=== PATIENT | female | born 1985 | race Caucasian/White ===

== ENCOUNTER 2022-06-02 09:33 | Outpatient (CLI) | payer OTHER, SELFPAY ==
--- NOTE | 2022-06-02 09:45 | CRLHL7_ITS ---
For Patients: As a result of the Cures Act, medical imaging exams and procedure reports are released immediately into your electronic medical record. You may view this report before your referring provider. If you have questions, please contact your health care provider. INDICATION: First trimester scan, establish dates. COMPARISON: None. TECHNIQUE: Real-time singh-scale imaging of the pelvis was performed. FINDINGS: Sonographic imaging demonstrates a single living intrauterine gestation. The embryo demonstrates a regular cardiac rate measuring 148 beats per minute. The embryo`s crown-rump length measurement of 1.3 cm corresponds to a gestational age of 7 weeks 4 days with a sonographic due date of 01/15/2023. There is a normal-appearing yolk sac. There are no gross abnormalities noted within the embryo at this early state of development. The gestational sac has a normal appearance. There is a superior perigestational hemorrhage measuring 1.1 x 0.4 x 1.8 cm and a left inferior subchorionic hemorrhage measuring 2.4 x 0.5 x 2.0 cm. The amount of fluid within the sac appears appropriate for gestational age. The cervix is closed. The myometrium appears normal. Left ovary not visualized. Corpus luteal cyst right ovary appear there are no suspicious fluid collections noted in the cul-de-sac. IMPRESSION: Single living intrauterine with sonographic gestational age of 7 weeks 4 days and sonographic due date 01/15/2023. Two subchorionic hemorrhages measuring 1.8 and 2.4 cm. Dictated by Angel Brito MD @ 06/02/2022 10:52:58 AM (Electronically Signed)
== END 2022-06-02 09:34 | disposition home or self-care (01) ==
LOC: US 09:34
PROVIDERS: Visit Provider Advanced Practice Midwife
DX: Z34.91 Encounter for supervision of normal pregnancy, unspecified, first trimester (principal); Z3A.01 Less than 8 weeks gestation of pregnancy
CPT/HCPCS: 76817

== ENCOUNTER 2022-06-02 09:56 | Outpatient (CLI) | payer OTHER, SELFPAY ==
[2022-06-02 15:55] LABS: Hepatitis B Surface Antigen* Negative (Negative)
[2022-06-02 16:06] LABS: HIV 1/2/P24 Combo Screen* Negative (Negative)
[2022-06-02 16:13] LABS: Hepatitis C Virus Antibody* Negative (Negative)
[2022-06-02 19:08] LABS: Chlamydia DNA Amplified* NOT DETECTED (No Detected); GC DNA Amplified* NOT DETECTED (No Detected)
[2022-06-03 17:01] LABS: Rapid Plasma Reagin (RPR) Non Reactive (Non Reactive)
[2022-06-03 17:43] LABS: Rubella Antibody IgG 42.5 IU/mL
== END 2022-06-02 09:57 | disposition home or self-care (01) ==
PROVIDERS: Visit Provider Advanced Practice Midwife
DX: Z34.91 Encounter for supervision of normal pregnancy, unspecified, first trimester (principal); Z3A.01 Less than 8 weeks gestation of pregnancy
CPT/HCPCS: 86592; 86703; 86762; 86787; 86803; 86850; 86900; 86901; 87086; 87340; 87491; 87591

== ENCOUNTER 2022-07-01 14:22 | Outpatient (CLI) | payer OTHER, SELFPAY ==
[2022-07-01 17:46] LABS: Chlamydia DNA Amplified* NOT DETECTED (No Detected); GC DNA Amplified* NOT DETECTED (No Detected)
== END 2022-07-01 14:23 | disposition home or self-care (01) ==
LOC: NFLDREF 14:26
PROVIDERS: Visit Provider Advanced Practice Midwife
DX: O26.851 Spotting complicating pregnancy, first trimester (principal); Z3A.12 12 weeks gestation of pregnancy
CPT/HCPCS: 87491; 87591

== ENCOUNTER 2022-08-11 13:24 | Outpatient (CLI) | payer OTHER, SELFPAY ==
--- NOTE | 2022-08-11 13:00 | CRLHL7_ITS ---
For Patients: As a result of the Century Cures Act, medical imaging exams and procedure reports are released immediately into your electronic medical record. You may view this report before your referring provider. If you have questions, please contact your health care provider. INDICATION: Bleeding in COMPARISON: 06/02/2022 TECHNIQUE: Real-time singh-scale imaging of the pelvis was performed. FINDINGS: Sonographic imaging demonstrates a single living intrauterine gestation. The embryo demonstrates a regular cardiac rate measuring 152 beats per minute. BPD 52nd percentile. HC 26th percentile. AC 69th percentile. FL 34th percentile. Estimated weight 219 grams, 54th percentile. Sonographic gestational age 17 weeks 6 days and sonographic due date 01/13/2023. Cervix is closed and measures 3.5 cm. position vertex. Placenta is posterior. Amniotic fluid equals 4.2 cm single deepest pocket. IMPRESSION: Sonographic gestational age 17 weeks 6 days and sonographic due date 01/13/2023. Closed cervix. Normal amniotic fluid. Dictated by Angel Brito MD @ 08/12/2022 9:59:18 AM (Electronically Signed)
== END 2022-08-11 13:25 | disposition home or self-care (01) ==
LOC: US 13:25
PROVIDERS: Visit Provider Physician Assistant
DX: O26.859 Spotting complicating pregnancy, unspecified trimester (principal); Z3A.17 17 weeks gestation of pregnancy
CPT/HCPCS: 76816

== ENCOUNTER 2022-10-07 10:19 | Outpatient (CLI) | payer OTHER, SELFPAY ==
[2022-10-07 10:32] LABS: Appearance Urine Clear (Clear); Bilirubin Urine Negative (Negative); Blood Urine Negative (Negative); Color Urine Yellow (Yellow); Glucose Urine Negative (Negative); Ketones Urine Negative (Negative); Leukocyte Esterase Urine Trace (Negative); Nitrite Urine Negative (Negative); Protein Urine Negative (Negative); Specific Gravity Urine 1.015 (1.000-1.030); Urobilinogen Urine 0.2 (0.2-1.0)
[2022-10-07 10:38] LABS: RBC Urine 0-2 (0-2); Squamous Epithelial Cell Urine Few (None-Few)
== END 2022-10-07 10:20 | disposition home or self-care (01) ==
LOC: NFLDREF 10:20
PROVIDERS: Visit Provider Registered Nurse
DX: R35.0 Frequency of micturition (principal)
CPT/HCPCS: 81003; 81015; 86592; 87086

== ENCOUNTER 2022-11-17 09:43 | Outpatient (CLI) | payer OTHER, SELFPAY ==
--- NOTE | 2022-11-17 09:45 | CRLHL7_ITS ---
For Patients: As a result of the Century Cures Act, medical imaging exams and procedure reports are released immediately into your electronic medical record. You may view this report before your referring provider. If you have questions, please contact your health care provider. INDICATION: Third trimester scan, evaluate growth. COMPARISON: 08/11/2022 TECHNIQUE: Real time singh scale imaging of the fetus was performed. FINDINGS: Sonographic imaging demonstrates a single living intrauterine gestation. Fetus demonstrates a regular cardiac rate of 159 beats per minute. Fetus has a vertex position. The placenta lies posteriorly. Amniotic fluid volume appears normal and there is a single deepest vertical pocket: 6.1 cm. The estimated weight is 1758gm which lies at the 25th %. On the prior OB ultrasound exam dated 08/11/2022 the estimated weight was at the 54th%. BPD 26th percentile. HC 12th percentile. AC 30th percentile. FL 29th percentile. The HC/AC ratio measures 1.06 range (0.96-1.16). IMPRESSION: Sonographic gestational age 31 weeks 3 days and sonographic due date 01/16/2023. Good correlation with dates. Normal interval growth. Estimated weight 25th percentile. Abdominal circumference 30th percentile. Dictated by Angel Brito MD @ 11/17/2022 12:20:14 PM (Electronically Signed)
== END 2022-11-17 09:44 | disposition home or self-care (01) ==
LOC: US 09:43
PROVIDERS: Visit Provider Obstetrics & Gynecology
DX: O09.523 Supervision of elderly multigravida, third trimester (principal); Z3A.31 31 weeks gestation of pregnancy
CPT/HCPCS: 76816

== ENCOUNTER 2022-12-09 03:13 | Outpatient (CLI) | payer OTHER, SELFPAY ==
[2022-12-09 03:40] VITALS: BP 130/61; PULSE 84; PULSE 85; O2SAT 97
[2022-12-09 03:45] VITALS: RESP 18; TEMP 37.1
[2022-12-09] MEDS: LACTATED RINGERS 1000 ML 1,000 ML 500 ML IV (04:12)
[2022-12-09 05:37] LABS: Appearance Urine Clear (Clear); Bilirubin Urine Negative (Negative); Blood Urine 3+ (Negative); Color Urine Yellow (Yellow); Glucose Urine Negative (Negative); Ketones Urine Negative (Negative); Leukocyte Esterase Urine 1+ (Negative); Nitrite Urine Negative (Negative); Protein Urine Negative (Negative); Specific Gravity Urine 1.015 (1.000-1.030); Urobilinogen Urine 0.2 (0.2-1.0)
[2022-12-09 05:56] LABS: Squamous Epithelial Cell Urine Few (None-Few); WBC Urine 0-2 (0-5)
[2022-12-09 07:58] VITALS: BP 114/56; PULSE 78
--- NOTE | 2022-12-09 11:14 | PC.OBNST ---
NST Note NST Note Start: 12/09/22 03:18 Freq: ONCE Status: Active Protocol: Document 12/09/22 10:45 [facility] (Rec: 12/09/22 11:14 [facility] [id number]) NST Note 3 Para (# of births) 1 EDC 01/13/23 Gestational Age In Weeks & Days 35 Weeks & 0 Days High Risk Factors Advanced Maternal Age Patient Presented with Complaint(s) of Contractions/cramping Reactive Yes Appropriate for Gestational Age Yes ROSENDO Gorman RN Date 12/09/22 Reactive Yes Appropriate for Gestational Age Yes ROSENDO Piedra Date 12/09/22 OB NST charge Yes Complete NST Note via Write Note Yes The provider's electronic signature indicates the NST is reactive/appropriate for gestational age. *Note to provider: If an addendum is required, open the patient's chart and click on the note under the Nurse/Allied Health tab.
[2022-12-09 16:09] LABS: Strep B DNA Probe NEGATIVE (Negative)
[2022-12-09 16:10] LABS: Strep B Pen/Amox Allergy No
== END 2022-12-09 10:45 | disposition home or self-care (01) ==
LOC: OB OUT 03:14 → OB 03:14
PROVIDERS: Visit Provider Obstetrics & Gynecology
DX: O09.523 Supervision of elderly multigravida, third trimester (principal); O47.03 False labor before 37 completed weeks of gestation, third trimester; Z3A.35 35 weeks gestation of pregnancy
CPT/HCPCS: 59025; 81003; 81015; 87081; 87086; 87653; 99213; J7120

== ENCOUNTER 2023-01-04 13:06 | Outpatient (CLI) | payer OTHER, SELFPAY ==
--- NOTE | 2023-01-04 17:00 | P.LACCB_ITS ---
Consult Note - Mom Date of Visit Date of visit: 01/04/23 residential solar sales consultant: Zuly Davidson Visit Code: Visit Patient's Information Phone number: [phone] : 2 Para: 2 Allergies bee venom protein (honey bee) Allergy (Intermediate, Verified 12/29/22 15:47) swelling Delivery Information Delivery type: Vaginal Weeks Gestation: 37.6 Gestational Age: AGA Weight: 2.575 kg Discharge Weight: 2.464 kg Baby's Information Baby's Age at Visit: 6 days Baby's Provider or Clinic: Dr. Rawls Jaundice: No Reason for Consult Reason for Consult: difficulty latching, especially on the right side Past Experience Past Experience: Yes (nursed her older child for a few months, mostly pumped and gave EBM/formula) Current Frequency of Day Feedings: every 2 - 3 hours around the clock Both Breasts: Yes (mom attempts, difficulty on R side) Suck: fairly strong Latch: fairly wide Length of Time: 10 - 15 minutes total Pumping Pumping: Yes (will use the Haakaa on the side mom doesn't nurse from) Quantity Pumped: .5 - 1 oz total Supplementing EMB Supplement: Yes (will give .5 - 1 oz if baby still seems hungry after nursing) Formula Supplement: No Baby Elimination Number of Wet Diapers a Day: almost every feeding Number of BM a Day: at least with every other feeding; yellow and seedy Breast/Nipple Condition Breast Information: WNL Engorgement: No Maternal Nipple Condition - Left: Common Nipple Maternal Nipple Condition - Right: Common Nipple Sore Nipples: Yes (the left side) Onsite Pre-Feed weight: 2.388 kg Post-Feed weight: 2.412 kg Milk Transferred (mL): 24 Pre-Nursing Left Nipple: Within Normal Limits Pre-Nursing Right Nipple: Within Normal Limits Post-Nursing Left Nipple: Within Normal Limits Post-Nursing Right Nipple: Within Normal Limits Assessments/Interventions Assessments/Interventions: Met with mom and this now 6 day old ex- term AGA baby for consult.? Mom reports baby is nursing 10 - 12 times in 24 hours, she prefers the left side but mom will offer the right each time.? States nursing sessions are 10 - 15 minutes long.? If baby doesn't nurse from the right side she'll use the Haakaa and gets .5 - 1 oz total.? POC occasionally give baby EBM if she still seems hungry after nursing.? Breasts WNL- symmetrical with rounded lower quadrants, intramammary distance is < 1.5 inches.? Nipples are everted and don't flatten or retract on compression.? With her older child mom reports she was told her milk didn't have enough fat content and that's why her first born had a hard time gaining weight.? States he didn't gain weight from 3 - 6 months on her EBM; once they switched to formula he began to gain appropriately.? Baby has lost 22 grams from her PCP visit yesterday and is 7% below BW.? Mom denies any caput/cephalohematoma; thinks baby has equal ROM when turning her head and moving her extremities.? Baby's palate is a little high.? She has a fairly strong suck on a finger and the tongue is over the gum line.? The tongue also has good lateral movement and is rounded when lifted; when baby extended her tongue out it was heart shaped.? Upper lip was easy to flange and her gums didn't kleber.? Lower frenulum appears to be WNL. Mom attempted to latch baby to the right side and several times baby latched but would only suckle about 10 times before stopping or coming off.? There was really no improvement when mom exaggerated pointing her nipple to baby's nose or when she expressed a little off the breast.? Baby was able to nurse for about 10 minutes when a nipple shield was applied.? Mom then switched her to the left side; on this side baby was raising her tongue and when mom did manage to get her latched, her cheeks were sucking in.? She tried with the nipple shield, and baby nursed for a few minutes with a better latch, but was very sleepy.? In this 30 minute feeding baby transferred 24 ml. 1. Mom to continue nursing every 2 - 3 hours.? Ideas to help are: nipple to nose, expressing a little milk beforehand at least on the right, and using the nipple shield.? Reviewed the importance of seeing milk in the shield after a feeding.? ? 2. Supplement with .5 - 1 oz after poor nursing sessions or if baby still seems hungry. 3. Suggested mom pump with the electric pump if/when she doesn't see milk in the shield.? Use the Haakaa if baby only nurses on one side. 4. Gave mom an exercise to hopefully help baby keep her tongue down and drawn out when she latches. 5. Baby has 2 week WCC next week.? Will f/u by phone to see how mom is feeling.? Could suggest another visit, second opinion for tongue tie, or referral to Peds dentist. Meds Home Medications and Allergies Home Medications Medication Instructions Recorded Confirmed Type prenat.vits,haley,ndu-[id number]-[id number] 1 tab PO QDAY 06/02/22 12/29/22 History Allergies Allergy/AdvReac Type Severity Reaction Status Date / Time bee venom protein (honey bee) Allergy Intermediate swelling Verified 12/29/22 15:47
== END 2023-01-04 13:07 | disposition home or self-care (01) ==
LOC: OB LAC 13:06
PROVIDERS: Visit Provider Obstetrics & Gynecology
DX: Z39.1 Encounter for care and examination of lactating mother (principal)
CPT/HCPCS: 99211

== ENCOUNTER 2023-02-14 11:45 | Outpatient (CLI) | payer OTHER, SELFPAY | END 2023-02-14 11:46 | disposition home or self-care (01) | LOC: NFLDREF 11:54 | PROVIDERS: Visit Provider Registered Nurse | DX: N39.3 Stress incontinence (female) (male) (principal); Z39.2 Encounter for routine postpartum follow-up | CPT/HCPCS: 87086 ==

== ENCOUNTER 2023-06-08 13:00 | Outpatient (RCR) | payer OTHER, SELFPAY | END 2023-10-06 23:59 | disposition home or self-care (01) | PROVIDERS: Visit Provider Registered Nurse | DX: N39.3 Stress incontinence (female) (male) (principal); R39.14 Feeling of incomplete bladder emptying; Z51.89 Encounter for other specified aftercare | CPT/HCPCS: 97110; 97112; 97140; 97161; 97535 ==

== ENCOUNTER 2024-11-05 15:38 | Outpatient (CLI) | payer BC, SELFPAY | END 2024-11-05 15:39 | disposition home or self-care (01) | PROVIDERS: PCP Family Medicine; Visit Provider Nurse Practitioner Family | DX: R07.89 Other chest pain (principal) | CPT/HCPCS: 80053; 84443; 84484; 85025; 85379 ==

== ENCOUNTER 2024-11-26 14:53 | Outpatient (CLI) | payer BC, SELFPAY | END 2024-11-26 14:54 | disposition home or self-care (01) | LOC: NFLDREF 14:54 | PROVIDERS: PCP Family Medicine; Visit Provider Family Medicine | DX: Z13.6 Encounter for screening for cardiovascular disorders (principal) | CPT/HCPCS: 80061 ==

== ENCOUNTER 2024-12-03 14:54 | Outpatient (CLI) | payer BC, SELFPAY ==
[2024-12-07 04:45] LABS: HPV Source Cervix; HPV, High Risk by TMA Not Detected
== END 2024-12-03 14:55 | disposition home or self-care (01) ==
PROVIDERS: PCP Family Medicine; Visit Provider Physician Assistant
DX: Z12.4 Encounter for screening for malignant neoplasm of cervix (principal); Z11.51 Encounter for screening for human papillomavirus (HPV)
CPT/HCPCS: 87624; 87625; 88141; 88142